=== PATIENT | female | born 1935 | race Caucasian/White ===

== ENCOUNTER 2022-06-18 09:11 | Outpatient (CLI) | payer MEDICARE | END 2022-06-18 09:12 | disposition home or self-care (01) | LOC: CSHMRI 09:11 | PROVIDERS: ATTEND Anesthesiology Pain Medicine | DX: M54.16 Radiculopathy, lumbar region (principal); M47.816 Spondylosis without myelopathy or radiculopathy, lumbar region | CPT/HCPCS: 72148 ==